=== PATIENT | female | born 1975 | race American Indian/Alaskan Native ===

== ENCOUNTER 2018-06-19 11:51 | Outpatient (CLI) | payer MEDICAID ==
--- NOTE | 2018-06-19 12:58 | XRay Report ---
LUMBOSACRAL SPINE, FIVE VIEWS: HISTORY: Low back pain. Views of the lumbosacral spine demonstrate normal bony alignment, vertebral height and interspace distances. Oblique views show patent foramina and normal apophyseal joint alignment. IMPRESSION: Lumbar spine within normal limits.
--- NOTE | 2018-06-19 12:59 | XRay Report ---
CERVICAL SPINE, 5 views: History: Cervicalgia. Views of the cervical spine demonstrate normal bony alignment and vertebral body heights. There is mild disc space narrowing at C5-6 with mild anterior spurring. The remaining levels are unremarkable. The facet joints are within normal limits. Oblique views show patent foramina and normal apophyseal joint alignment. The prevertebral soft tissues are not thickened. IMPRESSION: Early degenerative disc disease at C5-6. No evidence for neural foraminal stenosis.
== END 2018-06-19 11:52 | disposition home or self-care (01) ==
LOC: XRAY 11:51
PROVIDERS: ATTEND Orthopaedic Surgery
DX: M50.322 Other cervical disc degeneration at C5-C6 level (principal); M48.02 Spinal stenosis, cervical region; M54.5 Low back pain; Z91.041 Radiographic dye allergy status
CPT/HCPCS: 72050; 72110

== ENCOUNTER 2018-09-30 20:21 | Emergency (ER) | payer MEDICAID ==
[2018-09-30 21:02] VITALS: BP 125/71
--- NOTE | 2018-10-01 01:46 | Emergency Department Report ---
ED Back Pain/Injury HPI - General Chief Complaint: Back Pain/Injury Stated Complaint: SCIATIC NERVE PAIN Time Seen by Provider: 10/01/18 01:27 Source: patient Limitations: No Limitations - History of Present Illness Initial Comments: Pt is a 43 yo female who presents to the ED with c/o neck pain and back pain x 6 months. She states she has occasional tingling sensation in the arms and legs. SHe denies any numbness or weakness. She denies any fall, trauma, or injury. Pt has been evaluated in the ED for these complaints on multiples occasions. Pt had XRs in the ED on 06/2018 which showed early DDD of C5-6 otherwise normal, and no acute process of the lumbar spine. Pt states she saw Dr. Foreman who referred her to physical therapy. Pt never went to physical therapy. Denies any PMHx. - Related Data Previous Rx's Medication Instructions Recorded Last Taken Type Ibuprofen 800 mg PO Q6HR PRN #20 tablet 10/01/18 Unknown Rx Methocarbamol [Robaxin TAB] 750 mg PO QHS PRN #14 tablet 10/01/18 Unknown Rx Prednisone [predniSONE 10 mg 10 mg PO .TAPER #1 tab.ds.pk 10/01/18 Unknown Rx (6-Day Pack, 21 Tabs)] Allergies Allergy/AdvReac Type Severity Reaction Status Date / Time iodine Allergy Itching Unverified 06/19/18 11:52 shellfish derived Allergy Unknown Verified 09/30/18 20:37 ED Review of Systems ROS: Stated complaint: SCIATIC NERVE PAIN Other details as noted in HPI Comment: All other systems reviewed and negative ED Past Medical Hx - Past Medical History Additional medical history: chronic back pain, pinched nerves in C-SPINE and LS SPINE - Surgical History Additional Surgical History: Gastric bypass 20 yrs ago - Social History Smoking Status: Current Every Day Smoker Substance Use Type: None - Medications Home Medications: Home Medications Medication Instructions Recorded Confirmed Last Taken Type Ibuprofen 800 mg PO Q6HR PRN #20 tablet 10/01/18 Unknown Rx Methocarbamol [Robaxin TAB] 750 mg PO QHS PRN #14 tablet 10/01/18 Unknown Rx Prednisone [predniSONE 10 mg 10 mg PO .TAPER #1 tab.ds.pk 10/01/18 Unknown Rx (6-Day Pack, 21 Tabs)] ED Physical Exam - General Limitations: No Limitations General appearance: alert, in no apparent distress - Head Head exam: Present: atraumatic, normocephalic - Eye Eye exam: Present: normal appearance - ENT ENT exam: Present: mucous membranes moist - Neck Neck exam: Present: normal inspection, full ROM, other (right sided C-spine paraspinal muscular tenderness, no midline tenderness, no step offs, no deformities) - Respiratory Respiratory exam: Present: normal lung sounds bilaterally. Absent: respiratory distress, wheezes, rales, rhonchi, stridor, chest wall tenderness, accessory muscle use, decreased breath sounds, prolonged expiratory - Cardiovascular Cardiovascular Exam: Present: regular rate, normal rhythm, normal heart sounds. Absent: systolic murmur, diastolic murmur, rubs, gallop - Back Exam Back exam: Present: normal inspection, full ROM, paraspinal tenderness (right sided lumbar paraspinal muscular tenderness, no T-spine or L-spine midline tenderness, no step offs, no deformities). Absent: vertebral tenderness - Neurological Exam Neurological exam: Present: alert, oriented X3, CN II-XII intact, normal gait, other (equal grip wrapper strength, normal finger to nose, normal heel to underwood, 5/5 strength in the BUE/BLE, sensation intact, no focal neuro deficit). Absent: motor sensory deficit - Psychiatric Psychiatric exam: Present: normal affect, normal mood - Skin Skin exam: Present: warm, dry, intact ED Course Vital Signs 09/30/18 09/30/18 10/01/18 20:53 22:10 02:06 Temperature 98.2 F 98.2 F Pulse Rate 93 H 90 69 Respiratory 18 18 17 Rate Blood Pressure 125/71 125/71 O2 Sat by Pulse 100 100 100 Oximetry ED Medical Decision Making - Lab Data Vital Signs 09/30/18 09/30/18 10/01/18 20:53 22:10 02:06 Temperature 98.2 F 98.2 F Pulse Rate 93 H 90 69 Respiratory 18 18 17 Rate Blood Pressure 125/71 125/71 O2 Sat by Pulse 100 100 100 Oximetry - Medical Decision Making Pt is a 43 yo female who presents to the ED with c/o neck pain and back pain x 6 months. She states she has occasional tingling sensation in the arms and legs. SHe denies any numbness or weakness. She denies any fall, trauma, or injury. Pt has been evaluated in the ED for these complaints on multiples occasions. Pt had XRs in the ED on 06/2018 which showed early DDD of C5-6 otherwise normal, and no acute process of the lumbar spine. Pt states she saw Dr. Foreman who referred her to physical therapy. Pt never went to physical therapy. Denies any PMHx. Examination with right sided c-spine and l-spine paraspinal muscular tenderness, no midline tenderness, no step offs, no deformities, no neuro deficit. Will give pt tx for strain. Will give anti-inflammatory, muscle relaxer, and steroids. Advised pt to please follow up with Dr. Foreman orthopedic again in the next 2-3 days. Follow up with PCP in the next 2-3 days. May use ice, heating pad, epsom salt bath. Critical care attestation.: If time is entered above; I have spent that time in minutes in the direct care of this critically ill patient, excluding procedure time. ED Disposition Clinical Impression: Chronic neck pain, Muscle strain Chronic back pain Qualifiers: Back pain location: low back pain Back pain laterality: right Sciatica presence: without sciatica Qualified Code(s): M54.5 - Low back pain DDD (degenerative disc disease) Qualifiers: Spinal region: mid-cervical Mid-cervical spinal level: C5-C6 Qualified Code(s): M50.322 - Other cervical disc degeneration at C5-C6 level Disposition: -01 TO HOME OR SELFCARE Is pt being admited?: No Does the pt Need Aspirin: No Condition: Stable Instructions: Muscle Strain (ED), Chronic Back Pain (ED) Additional Instructions: Please take medication as prescribed. Do not drive or operate heavy machinery while taking muscle relaxer. Please follow up with Dr. Foreman orthopedic again in the next 2-3 days. Follow up with primary care in the next 2-3 days. May use ice, heating pad, epsom salt bath. Prescriptions: Methocarbamol [Robaxin TAB] 750 mg PO QHS PRN #14 tablet PRN Reason: Spasms Ibuprofen 800 mg PO Q6HR PRN #20 tablet PRN Reason: Pain, Moderate (4-6) Prednisone [predniSONE 10 mg (6-Day Pack, 21 Tabs)] 10 mg PO .TAPER #1 tab.ds.pk Referrals: JOSE RACHEL MD [Primary Care Provider] - 2-3 Days ANDREIA FOREMAN MD [Staff Physician] - 2-3 Days Forms: Accompanied Note, Work/School Release Form(ED) Time of Disposition: 01:52 Print Language: IVORIAN
== END 2018-10-01 02:06 | disposition home or self-care (01) ==
LOC: ED 20:21
DX: S16.1XXA Strain of muscle, fascia and tendon at neck level, initial encounter (principal); M50.322 Other cervical disc degeneration at C5-C6 level; G89.29 Other chronic pain; F17.200 Nicotine dependence, unspecified, uncomplicated; Z91.013 Allergy to seafood; Z91.09 Other allergy status, other than to drugs and biological substances; X58.XXXA Exposure to other specified factors, initial encounter; Y93.89 Activity, other specified; Y92.89 Other specified places as the place of occurrence of the external cause; Y99.8 Other external cause status
CPT/HCPCS: 99282

== ENCOUNTER 2019-06-16 08:42 | Emergency (ER) | payer MEDICAID ==
[2019-06-16] MEDS ORDERED: ASPIRIN 325 MG TAB PO ONE (09:07)
[2019-06-16 09:45] LABS: Basophils # (Auto) 0.1 K/mm3 (0.0-0.1); Basophils % (Auto) 0.5 % (0.0-1.8); Eosinophils # (Auto) 0.1 K/mm3 (0.0-0.4); Hematocrit 29.7 % (30.3-42.9); Hemoglobin 9.8 gm/dl (10.1-14.3); Lymphocytes # (Auto) 3.7 K/mm3 (1.2-5.4); Lymphocytes % (Auto) 36.8 % (13.4-35.0); Mean Corpuscular HGB Conc 33 % (30-34); Mean Corpuscular Volume 82 fl (79-97); Monocytes # (Auto) 1.2 K/mm3 (0.0-0.8); Monocytes % (Auto) 12.3 % (0.0-7.3); Platelet Count 187 K/mm3 (140-440); Red Blood Count 3.63 M/mm3 (3.65-5.03)
[2019-06-16 09:46] LABS: Red Cell Distribution Width 20.3 % (13.2-15.2)
[2019-06-16 10:08] LABS: BUN/Creatinine Ratio 15; Blood Urea Nitrogen 6 mg/dL (7-17)
[2019-06-16 10:09] LABS: Calcium 8.4 mg/dL (8.4-10.2); Hemolysis Index 66
--- NOTE | 2019-06-16 13:51 | Event Note ---
Date: 06/16/19 Patient is a 44-year-old female, she might be seen doctor. BABAR primary care doctor, does not have any long-term medical problems that she is aware of, indicates that she is not , presenting with 2 months of shortness of breath. She states that she has no DVT or pulmonary embolism risk factors. She is also endorsing lower extremity swelling and edema. Upon initial evaluation she is resting comfortably in her stretcher, and in no acute distress. Plan is to obtain basic laboratory studies, EKG, x-ray the chest, and reassess. Reports no PE, DVT risk factors, low risk by well's criteria, perc negative Vital Signs 06/16/19 08:47 Temperature 97.5 F L Pulse Rate 69 Respiratory 18 Rate Blood Pressure 108/43 O2 Sat by Pulse 100 Oximetry Lab Results 06/16/19 06/16/19 06/16/19 Range/Units 09:13 09:13 12:12 WBC 10.0 (4.5-11.0) K/mm3 RBC 3.63 L (3.65-5.03) M/mm3 Hgb 9.8 L (10.1-14.3) gm/dl Hct 29.7 L (30.3-42.9) % MCV 82 (79-97) fl MCH 27 L (28-32) pg MCHC 33 (30-34) % RDW 20.3 H (13.2-15.2) % Plt Count 187 (140-440) K/mm3 Lymph % (Auto) 36.8 H (13.4-35.0) % Harrison % (Auto) 12.3 H (0.0-7.3) % Eos % (Auto) 1.0 (0.0-4.3) % Baso % (Auto) 0.5 (0.0-1.8) % Lymph # 3.7 (1.2-5.4) K/mm3 Harrison # 1.2 H (0.0-0.8) K/mm3 Eos # 0.1 (0.0-0.4) K/mm3 Baso # 0.1 (0.0-0.1) K/mm3 Seg Neutrophils % 49.4 (40.0-70.0) % Seg Neutrophils # 4.9 (1.8-7.7) K/mm3 Sodium 136 L (137-145) mmol/L Potassium 4.2 (3.6-5.0) mmol/L Chloride 103.6 (98-107) mmol/L Carbon Dioxide 19 L (22-30) mmol/L Anion Gap 18 mmol/L BUN 6 L (7-17) mg/dL Creatinine 0.4 L (0.7-1.2) mg/dL Estimated GFR > 60 ml/min BUN/Creatinine Ratio 15 % Glucose 98 (65-100) mg/dL Calcium 8.4 (8.4-10.2) mg/dL Troponin T < 0.010 < 0.010 (0.00-0.029) ng/mL
[2019-06-16 14:36] LABS: INR 1.69 (0.87-1.13)
--- NOTE | 2019-06-16 14:51 | Emergency Department Report ---
ED General Adult HPI - General Chief complaint: Dyspnea/Respdistress Stated complaint: BILAT FEET SWELLING/BACK PAIN Time Seen by Provider: 06/16/19 14:41 Source: patient Mode of arrival: Ambulatory Limitations: No Limitations - History of Present Illness Initial comments: Patient is 44 years old female with no significant past medical history. Patient presented to the ER complaining of 2 month history of bilateral lower extremity edema. Patient stated that she had similar symptoms 2 years ago and she was treated with a water pill. Patient denied any chest pain or shortness of breath. No fever or chills. - Related Data Previous Rx's Medication Instructions Recorded Last Taken Type Ibuprofen [Ibuprofen 800] 800 mg PO Q6HR PRN #20 tablet 10/01/18 Unknown Rx Prednisone [predniSONE 10 mg 10 mg PO .TAPER #1 tab.ds.pk 10/01/18 Unknown Rx (6-Day Pack, 21 Tabs)] methOCARBAMOL [Robaxin TAB] 750 mg PO QHS PRN #14 tablet 10/01/18 Unknown Rx Allergies Allergy/AdvReac Type Severity Reaction Status Date / Time iodine Allergy Itching Unverified 06/19/18 11:52 shellfish derived Allergy Unknown Verified 09/30/18 20:37 ED Review of Systems ROS: Stated complaint: BILAT FEET SWELLING/BACK PAIN Other details as noted in HPI Comment: All other systems reviewed and negative Constitutional: denies: chills, fever Respiratory: denies: orthopnea, shortness of breath, SOB with exertion Cardiovascular: denies: chest pain, palpitations Gastrointestinal: denies: abdominal pain, nausea, vomiting Neurological: denies: headache ED Past Medical Hx - Past Medical History Previous Medical History?: Yes Additional medical history: Chronic back pain, pinched nerves in C-SPINE and LS SPINE - Surgical History Past Surgical History?: Yes Additional Surgical History: Gastric bypass 20 yrs ago - Social History Smoking Status: Current Every Day Smoker Substance Use Type: None - Medications Home Medications: Home Medications Medication Instructions Recorded Confirmed Last Taken Type Ibuprofen [Ibuprofen 800] 800 mg PO Q6HR PRN #20 tablet 10/01/18 Unknown Rx Prednisone [predniSONE 10 mg 10 mg PO .TAPER #1 tab.ds.pk 10/01/18 Unknown Rx (6-Day Pack, 21 Tabs)] methOCARBAMOL [Robaxin TAB] 750 mg PO QHS PRN #14 tablet 10/01/18 Unknown Rx ED Physical Exam - General Limitations: No Limitations General appearance: alert, in no apparent distress - Head Head exam: Present: atraumatic, normocephalic, normal inspection - Eye Eye exam: Present: normal appearance - ENT ENT exam: Present: normal exam, normal orophraynx, mucous membranes moist - Neck Neck exam: Present: normal inspection. Absent: tenderness, meningismus - Respiratory Respiratory exam: Present: normal lung sounds bilaterally - Cardiovascular Cardiovascular Exam: Present: regular rate, normal rhythm, normal heart sounds - GI/Abdominal GI/Abdominal exam: Present: soft, normal bowel sounds. Absent: distended, tenderness, guarding, rebound, rigid, organomegaly, mass, bruit, pulsatile mass, hernia - Extremities Exam Extremities exam: Present: normal inspection, full ROM, normal capillary refill, pedal edema (2+ bilateral lower extremity edema.). Absent: tenderness, joint swelling, calf tenderness - Back Exam Back exam: Present: normal inspection, full ROM. Absent: CVA tenderness (R), CVA tenderness (L), muscle spasm, paraspinal tenderness, vertebral tenderness - Neurological Exam Neurological exam: Present: alert, oriented X3, CN II-XII intact, normal gait, reflexes normal. Absent: motor sensory deficit - Psychiatric Psychiatric exam: Present: normal mood - Skin Skin exam: Present: warm, intact, normal color ED Course Vital Signs 06/16/19 06/16/19 06/16/19 08:47 14:30 14:43 Temperature 97.5 F L 97.5 F L Pulse Rate 69 69 Respiratory 18 22 Rate Blood Pressure 108/43 93/44 O2 Sat by Pulse 100 100 100 Oximetry 06/16/19 06/16/19 06/16/19 15:00 15:31 16:01 Temperature Pulse Rate 37 L 40 L Respiratory 16 20 16 Rate Blood Pressure 85/58 90/54 96/51 O2 Sat by Pulse 75 L 100 99 Oximetry 06/16/19 06/16/19 16:31 17:01 Temperature Pulse Rate 41 L 42 L Respiratory 22 18 Rate Blood Pressure 103/55 103/61 O2 Sat by Pulse 100 98 Oximetry ED Medical Decision Making - Lab Data Result diagrams: 06/16/19 09:13 06/16/19 09:13 - EKG Data -: EKG Interpreted by Sd EKG shows normal: sinus rhythm Rate: bradycardia - EKG Data Interpretation: no acute changes - Radiology Data Radiology results: report reviewed - Medical Decision Making Patient is 44 years old female with no significant past medical history. Patient presented to the ER complaining of 2 month history of bilateral lower extremity edema. Patient stated that she had similar symptoms 2 years ago and she was treated with a water pill. Patient denied any chest pain or shortness of breath. No fever or chills. Patient remained stable in the ER. Labs reviewed and showed elevated liver enzymes consistent with patient history of chronic alcoholism. Chest x-ray show mild interstitial edema. Patient given prescription for Lasix and potassium supplement. Patient advised to follow up with her primary care physician. Patient also asked for a referral to Dr. Foreman to follow up with her sciatica. Patient advised to return to the ER if symptoms are not improved. Critical care attestation.: If time is entered above; I have spent that time in minutes in the direct care of this critically ill patient, excluding procedure time. ED Disposition Clinical Impression: Peripheral edema, Liver cirrhosis, Sciatica Disposition: TO HOME OR SELFCARE Is pt being admited?: No Condition: Stable Referrals: JOSE RACHEL MD [Primary Care Provider] - 3-5 Days [facility] [Provider Group] - 3-5 Days ANDREIA FOREMAN MD [Staff Physician] - 3-5 Days
[2019-06-16 15:26] LABS: Albumin 2.5 g/dL (3.9-5); Bilirubin,Direct 1.9 mg/dL (0-0.2)
--- NOTE | 2019-06-16 16:25 | XRay Report ---
CHEST 1 VIEW INDICATION / CLINICAL INFORMATION: Chest Pain UPT. COMPARISON: None available. FINDINGS: SUPPORT DEVICES: None. HEART / MEDIASTINUM: No significant abnormality. LUNGS / PLEURA: Mild interstitial edema. Signer Name: Adam Lopez MD Signed: 06/16/2019 4:21 PM Workstation Name: [id number]
[2019-06-16 17:24] VITALS: BP 103/61
== END 2019-06-16 18:26 | disposition home or self-care (01) ==
LOC: ED 08:42
DX: R60.9 Edema, unspecified (principal); K74.60 Unspecified cirrhosis of liver; M54.30 Sciatica, unspecified side; F17.200 Nicotine dependence, unspecified, uncomplicated
CPT/HCPCS: 36415; 71045; 80048; 80076; 82550; 83735; 83880; 84484; 84702; 85025; 85610; 93005; 93010

== ENCOUNTER 2021-06-04 14:01 | Emergency (ER) | payer MEDICAID ==
[2021-06-04] MEDS ORDERED: LORazepam 1 MG TAB PO ONE (14:52)
[2021-06-04] MEDS ORDERED: LORazepam 2 MG/ML VIAL IV PRN ×3 (15:11)
[2021-06-04] MEDS ORDERED: diazePAM 10 MG/2 ML SYRINGE IV ONE (15:11)
--- NOTE | 2021-06-04 15:12 | Emergency Department Report ---
ED General Adult HPI - General Chief complaint: Pain General Stated complaint: shakes PUI?: No Time Seen by Provider: 06/04/21 14:53 Source: patient Mode of arrival: Ambulatory Limitations: No Limitations - History of Present Illness Initial comments: The patient was evaluated in the emergency department for symptoms described in the history of present illness. He/she was evaluated in the context of the global COVID-19 pandemic, which necessitated consideration that the patient might be at risk for infection with the virus that causes COVID-19. Institutional protocols and algorithms that pertain to the evaluation of dawood ents at risk for COVID-19 are in a state of rapid change based on information released by regulatory bodies including the CDC and federal and state organizations. These policies and algorithms were followed during the patient's care in the emergency department. Please note that these policies, procedures and recommendations changed on a rapid basis. The patient is a 46-year-old female. She has a history of alcohol abuse and gastric bypass. She also has a history of alcoholic hepatitis and chronic liver disease. She also has a history of ascites. The patient has not followed up with an outpatient primary care doctor or donor technician. The patient reports that she recently relapsed on alcohol, and then stopped a few days ago. She reports that she has mild shakes. She has no physical pain. She is not experiencing hallucinations. She denies homicidality and suicidality. She also endorses new onset easy bruising, on her bilateral anterior chest wall and breasts, and in her left upper extremity. She denies vomiting blood in defecation of blood. -: Gradual, days(s) Severity scale (0 -10): 10 Consistency: constant Improves with: none Worsens with: none - Related Data Home Medications Medication Instructions Recorded Confirmed Last Taken Gabapentin [Neurontin] 300 mg PO BID 06/04/21 06/04/21 Unknown tiZANidine [Zanaflex 4mg TAB] 4 mg PO DAILY 06/04/21 06/04/21 Unknown Allergies Allergy/AdvReac Type Severity Reaction Status Date / Time iodine Allergy Itching Verified 07/31/19 21:43 shellfish derived Allergy Itching Verified 07/31/19 21:43 ED Review of Systems ROS: Stated complaint: shakes Other details as noted in HPI Constitutional: malaise. denies: fever Eyes: denies: eye discharge, vision change ENT: denies: epistaxis Respiratory: denies: cough Cardiovascular: denies: chest pain Gastrointestinal: denies: abdominal pain, nausea, vomiting, diarrhea, hematemesis, melena, hematochezia Musculoskeletal: myalgia Skin: other (Ecchymosis, black and blue) Neurological: denies: confusion, abnormal gait Psychiatric: denies: depression, auditory hallucinations, visual hallucinations, homicidal thoughts, suicidal thoughts Hematological/Lymphatic: easy bruising. denies: easy bleeding ED Past Medical Hx - Past Medical History Previous Medical History?: Yes Additional medical history: Chronic back pain, pinched nerves in C-SPINE and LS SPINE - Surgical History Hx Cholecystectomy: Yes Additional Surgical History: Gastric bypass 20 yrs ago. x2 - Social History Smoking Status: Unknown if ever smoked - Medications Home Medications: Home Medications Medication Instructions Recorded Confirmed Last Taken Type Gabapentin [Neurontin] 300 mg PO BID 06/04/21 06/04/21 Unknown History tiZANidine [Zanaflex 4mg TAB] 4 mg PO DAILY 06/04/21 06/04/21 Unknown History ED Physical Exam - General Limitations: No Limitations General appearance: alert, anxious, obese - Head Head exam: Present: atraumatic, normocephalic - Eye Eye exam: Present: normal appearance, EOMI. Absent: nystagmus - ENT ENT exam: Present: normal exam, normal orophraynx, mucous membranes moist, normal external ear exam, other (Tongue fasciculations noted) - Neck Neck exam: Present: normal inspection, full ROM. Absent: tenderness, meningismus - Respiratory Respiratory exam: Present: normal lung sounds bilaterally, chest wall tenderness (Anterior chest wall ecchymosis noted. Chaperoned by Elza Guzman. Patient provides verbal consent for chest wall examination with manual plate filler). Absent: respiratory distress, wheezes, rales, rhonchi, stridor, decreased breath sounds - Cardiovascular Cardiovascular Exam: Present: normal rhythm, bradycardia, normal heart sounds. Absent: tachycardia, irregular rhythm, systolic murmur, diastolic murmur, rubs, gallop - GI/Abdominal GI/Abdominal exam: Present: soft. Absent: tenderness, guarding, rebound, rigid, pulsatile mass - Extremities Exam Extremities exam: Present: normal inspection, full ROM, pedal edema (1+ edema in the bilateral lower extremity), other (2+ pulses noted in the bilateral upper and lower extremities. There is no palpable cord. negative Homans sign. Muscular compartments are soft. The pelvis is stable.). Absent: calf tenderness - Back Exam Back exam: Present: normal inspection, full ROM. Absent: tenderness, CVA tenderness (R), CVA tenderness (L), paraspinal tenderness, vertebral tenderness - Neurological Exam Neurological exam: Present: alert, oriented X3, normal gait, other (No facial droop. Tongue midline. Extraocular movements intact bilaterally. Facial sensation intact to light touch in V1, V2, V3 distribution bilaterally. 5 and a 5 strength in 4 extremities. Sensation intact to light touch in 4 extremities.). Absent: motor sensory deficit - Psychiatric Psychiatric exam: Present: anxious. Absent: homicidal ideation, suicidal ideation - Skin Skin exam: Present: warm, ecchymosis ED Course Vital Signs 06/04/21 06/04/21 06/04/21 14:05 16:46 17:00 Temperature 97.9 F Pulse Rate 59 L 68 84 Respiratory 18 24 13 Rate Blood Pressure 96/58 84/60 Blood Pressure 92/54 [Right] O2 Sat by Pulse 100 100 99 Oximetry 06/04/21 06/04/21 06/04/21 17:15 17:30 18:30 Temperature Pulse Rate 82 80 90 Respiratory 15 18 14 Rate Blood Pressure 96/58 103/71 93/54 Blood Pressure [Right] O2 Sat by Pulse 100 100 100 Oximetry - Reevaluation(s) Reevaluation #1: 06/04/21 16:08 Differential diagnosis, including but not limited to: Thrombocytopenia, alcoholic liver disease, electrolyte derangement, alcohol withdrawal Assessment and plan: 46-year-old female, who was afebrile, with reassuring vital signs, who is clinically sober with a GCS of 15, who walks with a steady gait, presenting with mild shaking, mild tongue fasciculations, anterior chest wall ecchymosis, which is spontaneous and nontraumatic, left upper extremity ecchymosis, which is spontaneous and nontraumatic. This is most likely secondary to thrombocytopenia, likely secondary to liver disease and alcoholic disease. In addition, her underlying history of gastric bypass may predispose her towards these manifestations as well. We will replete the patient's potassium and magnesium. We will continue the patient's home medications. She will be given Valium for mild alcohol withdrawal. She is not homicidal or suicidal, she does not meet criteria for 1013 hold or involuntary hold, and she is not acutely cephalopathic or altered. Patient is strongly encouraged to cease alcohol consumption. She is also encouraged to consume outpatient mul tivitamins, to avoid NSAIDs, she will need to follow-up with an outpatient primary care doctor or operations section manager and/or GI specialist. The patient's liver abnormalities appear to be chronic. She is not acutely decompensated to the point where she would require medical admission to the hospital. Ultimately, it will be incumbent on the patient to follow-up as an outpatient, and adopt the appropriate diet lifestyle modifications necessary for her outpatient medical care. 06/04/21 18:48 This patient is reevaluated multiple times. She is eating a meal tray, without any kind of distress, and is noted to be on her cellular phone. Patient has also had multiple interactions with nursing staff, and registration staff. On my final reassessment, blood pressure is 107/65 mmHg. She appears to be at her baseline, and does not appear to be acutely decompensated. She is again encouraged to follow-up with outpatient specialist, and we also discussed diet lifestyle modifications. ED Medical Decision Making - Lab Data Result diagrams: 06/04/21 15:04 06/04/21 15:04 Vital Signs 06/04/21 14:05 Temperature 97.9 F Pulse Rate 59 L Respiratory 18 Rate Blood Pressure 92/54 [Right] O2 Sat by Pulse 100 Oximetry Lab Results 06/04/21 06/04/21 06/04/21 Range/Units 15:04 15:04 15:04 WBC 4.6 (4.5-11.0) K/mm3 RBC 3.70 (3.65-5.03) M/mm3 Hgb 9.2 L (10.1-14.3) gm/dl Hct 30.7 (30.3-42.9) % MCV 83 (79-97) fl MCH 25 L (28-32) pg MCHC 30 (30-34) % RDW 18.3 H (13.2-15.2) % Plt Count 97 L (140-440) K/mm3 Lymph % (Auto) 28.6 (13.4-35.0) % [place] % (Auto) 8.1 H (0.0-7.3) % Eos % (Auto) 0.7 (0.0-4.3) % Baso % (Auto) 0.7 (0.0-1.8) % Lymph # (Auto) 1.3 (1.2-5.4) K/mm3 [place] # (Auto) 0.4 (0.0-0.8) K/mm3 Eos # (Auto) 0.0 (0.0-0.4) K/mm3 Baso # (Auto) 0.0 (0.0-0.1) K/mm3 Seg Neutrophils % 61.9 (40.0-70.0) % Seg Neutrophils # 2.9 (1.8-7.7) K/mm3 PT (12.2-14.9) Sec. INR (0.87-1.13) APTT (24.2-36.6) Sec. Sodium 138 (137-145) mmol/L Potassium 3.1 L (3.6-5.0) mmol/L Chloride 100.3 (98-107) mmol/L Carbon Dioxide 22 (22-30) mmol/L Anion Gap 19 mmol/L BUN 8 (7-17) mg/dL Creatinine 0.6 (0.6-1.2) mg/dL Estimated GFR > 60 ml/min BUN/Creatinine Ratio 13 % Glucose 131 H (65-100) mg/dL Calcium 8.3 L (8.4-10.2) mg/dL Magnesium 1.30 L (1.7-2.3) mg/dL Total Bilirubin 2.50 H (0.1-1.2) mg/dL AST 105 H (5-40) units/L ALT 25 (7-56) units/L Alkaline Phosphatase 289 H (35-129) units/L Ammonia (25-60) umol/L Total Creatine Kinase 114 (30-135) units/L Total Protein 8.0 (6.3-8.2) g/dL Albumin 3.8 L (3.9-5) g/dL Albumin/Globulin Ratio 0.9 % Salicylates (2.8-20.0) mg/dL Acetaminophen 5.0 L (10.0-30.0) ug/mL Plasma/Serum Alcohol (0-0.07) % 06/04/21 06/04/21 06/04/21 Range/Units 15:04 15:04 15:13 WBC (4.5-11.0) K/mm3 RBC (3.65-5.03) M/mm3 Hgb (10.1-14.3) gm/dl Hct (30.3-42.9) % MCV (79-97) fl MCH (28-32) pg MCHC (30-34) % RDW (13.2-15.2) % Plt Count (140-440) K/mm3 Lymph % (Auto) (13.4-35.0) % [place] % (Auto) (0.0-7.3) % Eos % (Auto) (0.0-4.3) % Baso % (Auto) (0.0-1.8) % Lymph # (Auto) (1.2-5.4) K/mm3 [place] # (Auto) (0.0-0.8) K/mm3 Eos # (Auto) (0.0-0.4) K/mm3 Baso # (Auto) (0.0-0.1) K/mm3 Seg Neutrophils % (40.0-70.0) % Seg Neutrophils # (1.8-7.7) K/mm3 PT 14.7 (12.2-14.9) Sec. INR 1.04 (0.87-1.13) APTT 32.6 (24.2-36.6) Sec. Sodium (137-145) mmol/L Potassium (3.6-5.0) mmol/L Chloride (98-107) mmol/L Carbon Dioxide (22-30) mmol/L Anion Gap mmol/L BUN (7-17) mg/dL Creatinine (0.6-1.2) mg/dL Estimated GFR ml/min BUN/Creatinine Ratio % Glucose (65-100) mg/dL Calcium (8.4-10.2) mg/dL Magnesium (1.7-2.3) mg/dL Total Bilirubin (0.1-1.2) mg/dL AST (5-40) units/L ALT (7-56) units/L Alkaline Phosphatase (35-129) units/L Ammonia (25-60) umol/L Total Creatine Kinase (30-135) units/L Total Protein (6.3-8.2) g/dL Albumin (3.9-5) g/dL Albumin/Globulin Ratio % Salicylates < 0.3 L (2.8-20.0) mg/dL Acetaminophen (10.0-30.0) ug/mL Plasma/Serum Alcohol < 0.01 (0-0.07) % 06/04/ Range/Units 15:13 WBC (4.5-11.0) K/mm3 RBC (3.65-5.03) M/mm3 Hgb (10.1-14.3) gm/dl Hct (30.3-42.9) % MCV (79-97) fl MCH (28-32) pg MCHC (30-34) % RDW (13.2-15.2) % Plt Count (140-440) K/mm3 Lymph % (Auto) (13.4-35.0) % [place] % (Auto) (0.0-7.3) % Eos % (Auto) (0.0-4.3) % Baso % (Auto) (0.0-1.8) % Lymph # (Auto) (1.2-5.4) K/mm3 [place] # (Auto) (0.0-0.8) K/mm3 Eos # (Auto) (0.0-0.4) K/mm3 Baso # (Auto) (0.0-0.1) K/mm3 Seg Neutrophils % (40.0-70.0) % Seg Neutrophils # (1.8-7.7) K/mm3 PT (12.2-14.9) Sec. INR (0.87-1.13) APTT (24.2-36.6) Sec. Sodium (137-145) mmol/L Potassium (3.6-5.0) mmol/L Chloride (98-107) mmol/L Carbon Dioxide (22-30) mmol/L Anion Gap mmol/L BUN (7-17) mg/dL Creatinine (0.6-1.2) mg/dL Estimated GFR ml/min BUN/Creatinine Ratio % Glucose (65-100) mg/dL Calcium (8.4-10.2) mg/dL Magnesium (1.7-2.3) mg/dL Total Bilirubin (0.1-1.2) mg/dL AST (5-40) units/L ALT (7-56) units/L Alkaline Phosphatase (35-129) units/L Ammonia 29.0 (25-60) umol/L Total Creatine Kinase (30-135) units/L Total Protein (6.3-8.2) g/dL Albumin (3.9-5) g/dL Albumin/Globulin Ratio % Salicylates (2.8-20.0) mg/dL Acetaminophen (10.0-30.0) ug/mL Plasma/Serum Alcohol (0-0.07) % Vital Signs 06/04/21 06/04/21 06/04/21 14:05 16:46 17:00 Temperature 97.9 F Pulse Rate 59 L 68 84 Respiratory 18 24 13 Rate Blood Pressure 96/58 84/60 Blood Pressure 92/54 [Right] O2 Sat by Pulse 100 100 99 Oximetry 06/04/21 06/04/21 06/04/21 17:15 17:30 18:30 Temperature Pulse Rate 82 80 90 Respiratory 15 18 14 Rate Blood Pressure 96/58 103/71 93/54 Blood Pressure [Right] O2 Sat by Pulse 100 100 100 Oximetry Critical care attestation.: If time is entered above; I have spent that time in minutes in the direct care of this critically ill patient, excluding procedure time. ED Disposition Clinical Impression: History of alcohol abuse, Elevated liver enzymes, Coagulopathy, Hypomagnesemia, Alcoholic liver disease, Hypokalemia, Thrombocytopenia Disposition: 01 HOME / SELF CARE / HOMELESS Is pt being admited?: No Does the pt Need Aspirin: No Condition: Good Instructions: Alcoholic Liver Disease, Hypomagnesemia, Hypokalemia, Potassium Content of Foods Additional Instructions: Patient likely experiencing mild alcohol withdrawal, and is lately having black and blue/ecchymosis, secondary to thrombocytopenia/decreased platelet count, as well as impaired liver function, likely secondary to underlying alcoholic liver disease. Recommend immediate cessation of alcohol. Recommend follow-up with a primary care doctor within the next week, such as [facility], or Dr Metz Recommend follow-up with a donor technician, such as those who work at [facility], within the next month. Recommend follow-up with a operations section manager, such as Dr. Sykes, within the next month. Recommend that patient not consume Tylenol, Motrin, ibuprofen, Naprosyn, or Aleve. Take the vitamins as directed, medications as directed, use the Librium as needed for sensation of alcohol withdrawal. Please return to the emergency room right away with new pain, worsened pain, migration of pain, projectile vomiting, change in mental status, confusion, inability tolerate liquid feeds, new, worsened or different symptoms not present on the initial emergency room evaluation the patient is found to have low potassium and low magnesium, likely secondary to alcoholism. Patient should consume foods that are high in potassium, such as banana, avocado, or potato. Patient may alternatively take the supplements as prescribed. Referrals: RAGHU METZ MD [Staff Physician] - 3-5 Days MICHAEL SYKES MD [Staff Physician] - 3-5 Days [facility] [Provider Group] - 3-5 Days [facility] [Provider Group] - 3-5 Days
[2021-06-04 15:24] LABS: Basophils % (Auto) 0.7 % (0.0-1.8); Eosinophils % (Auto) 0.7 % (0.0-4.3); Lymphocytes # (Auto) 1.3 K/mm3 (1.2-5.4); Lymphocytes % (Auto) 28.6 % (13.4-35.0); Mean Corpuscular HGB Conc 30 % (30-34); Mean Corpuscular Volume 83 fl (79-97); Monocytes # (Auto) 0.4 K/mm3 (0.0-0.8); Monocytes % (Auto) 8.1 % (0.0-7.3); Red Cell Distribution Width 18.3 % (13.2-15.2)
[2021-06-04 15:29] LABS: Hematocrit 30.7 % (30.3-42.9); Hemoglobin 9.2 gm/dl (10.1-14.3)
[2021-06-04 15:30] LABS: Platelet Count 97 K/mm3 (140-440)
[2021-06-04 15:34] LABS: INR 1.04 (0.87-1.13)
[2021-06-04 15:35] LABS: Partial Thromboplastin Time 32.6 Sec. (24.2-36.6)
[2021-06-04 15:48] LABS: Alanine Aminotransferase 25 units/L (7-56); Albumin 3.8 g/dL (3.9-5); Blood Urea Nitrogen 8 mg/dL (7-17); Calcium 8.3 mg/dL (8.4-10.2); Hemolysis Index 2
[2021-06-04] MEDS ORDERED: POTASSIUM CHLORIDE ER 20 MEQ TAB PO ONE (15:54)
[2021-06-04] MEDS ORDERED: MAGNESIUM OXIDE 400 MG TAB PO STA (15:54)
[2021-06-04] MEDS ORDERED: MAGNESIUM SULFATE 2 GM/50 ML BAG IV ONE (15:54)
[2021-06-04 15:56] LABS: BUN/Creatinine Ratio 13
[2021-06-04] MEDS ORDERED: THIAMINE 100 MG, FOLIC ACID 1 MG, MULTIPLE VITAMIN INJ, ADULT 10 ML in SODIUM CHLORIDE ... IV ONE (16:00)
[2021-06-04 19:33] VITALS: BP 116/87
== END 2021-06-04 19:38 | disposition home or self-care (01) ==
LOC: ED 14:01
DX: S20.213A Contusion of bilateral front wall of thorax, initial encounter (principal); D68.9 Coagulation defect, unspecified; E83.42 Hypomagnesemia; E87.6 Hypokalemia; D69.6 Thrombocytopenia, unspecified; K70.9 Alcoholic liver disease, unspecified; X58.XXXA Exposure to other specified factors, initial encounter; Y93.89 Activity, other specified; Y92.89 Other specified places as the place of occurrence of the external cause; Y99.8 Other external cause status
CPT/HCPCS: 36415; 80053; 82140; 82550; 83735; 85025; 85610; 85730; 96365; 96366; 96375; 99283; J2060; J3360; J3411; J3490; J7030; 80320; Q0162; G0480

== ENCOUNTER 2021-10-05 08:58 | Emergency (ER) | payer MEDICAID ==
[2021-10-05 10:02] VITALS: BP 101/74
--- NOTE | 2021-10-05 18:13 | Electrocardiograph Report ---
[facility] Test Date: 2021-10-05 Test Time: 10:41:17 Pat Name: EMIL JONES Department: Room: Gender: F Checkman: OMER : 1975 Requested By: ED DOC Order Number: [id number] Reading MD: Kailee Weller Measurements Intervals [place] Rate: 79 P: 40 TX: 144 QRS: -16 QRSD: 99 T: -10 QT: 451 QTc: 516 Interpretive Statements Sinus rhythm Probable anterior infarct, age indeterminate Prolonged QT interval No previous ECG available for comparison Electronically Signed On 10-05-2021 18:13:30 EDT by Kailee Weller
== END 2021-10-05 19:00 | disposition left against medical advice (07) ==
LOC: ED 08:58
DX: R07.9 Chest pain, unspecified (principal); Z53.21 Procedure and treatment not carried out due to patient leaving prior to being seen by health care provider
CPT/HCPCS: 93005

== ENCOUNTER 2021-10-11 13:00 | Emergency (ER) | payer MEDICAID ==
[2021-10-11] MEDS ORDERED: ONDANSETRON 4 MG/2 ML INJ IV ONE (14:22)
[2021-10-11] MEDS ORDERED: MORPHINE 4 MG/1 ML INJ IV ONE ×2 (14:22→16:46)
[2021-10-11 14:46] LABS: Blood Urea Nitrogen 6 mg/dL (7-17); Calcium 8.5 mg/dL (8.4-10.2)
[2021-10-11 14:47] LABS: Alanine Aminotransferase 24 units/L (7-56); Albumin 2.7 g/dL (3.9-5); Basophils # (Auto) 0.1 K/mm3 (0.0-0.1); Basophils % (Auto) 1.2 % (0.0-1.8); Eosinophils % (Auto) 0.3 % (0.0-4.3); Hematocrit 26.9 % (30.3-42.9); Hemoglobin 8.8 gm/dl (10.1-14.3); Hemolysis Index 52; Lymphocytes # (Auto) 2.1 K/mm3 (1.2-5.4); Lymphocytes % (Auto) 17.3 % (13.4-35.0); Mean Corpuscular HGB Conc 33 % (30-34); Mean Corpuscular Volume 83 fl (79-97); Monocytes # (Auto) 1.4 K/mm3 (0.0-0.8); Monocytes % (Auto) 11.4 % (0.0-7.3); Platelet Count 260 K/mm3 (140-440); Red Blood Count 3.26 M/mm3 (3.65-5.03)
[2021-10-11 14:48] LABS: BUN/Creatinine Ratio 30
[2021-10-11 14:50] LABS: Red Cell Distribution Width 24.2 % (13.2-15.2)
[2021-10-11] MEDS ORDERED: diphenhydrAMINE 50 MG/ML VIAL ONE (14:52)
--- NOTE | 2021-10-11 16:30 | Cat Scan Report ---
CT ABDOMEN AND PELVIS WITHOUT CONTRAST HISTORY: abdominal pain COMPARISON: CT abdomen pelvis with contrast 07/30/2019 TECHNIQUE: Axial CT images were obtained through the abdomen and pelvis without IV contrast. Sagittal and coronal reformatted images. All CT scans at this location are performed using CT dose reduction for ALARA by means of automated exposure control. FINDINGS: CT ABDOMEN: Lung Bases: The visualized lung bases are clear. Borderline to mild cardiac enlargement. Liver: The liver appears mildly enlarged and heterogeneous on today's exam. This may represent fatty infiltration. There is small perihepatic ascites. Biliary: Stable cholecystectomy changes. No biliary dilatation is appreciated. Spleen: No significant abnormality. Pancreas: There are multiple small calcifications in the pancreatic head consistent with chronic panc reatitis. This is new since the previous exam. No obvious findings of acute pancreatitis. Adrenals: No significant abnormality. Kidneys: 4 mm calyceal stone is noted in the superior left kidney. No hydronephrosis. The kidneys and collecting system are otherwise unremarkable. Lymphatics: No lymphadenopathy. Vasculature: No significant abnormality. Bowel/Peritoneum: Circumferential thickening of the colon is again seen suggesting a nonspecific coli tis. There is no evidence for bowel obstruction or focal mass. Surgical changes are noted in the stom ach, correlate with history. The appendix is unremarkable. CT PELVIS: : The uterus, adnexa and bladder are within normal limits. Osseous Structures: No significant abnormality. Additional Findings: None IMPRESSION: Borderline to mild cardiomegaly, stable. Hepatomegaly with probable steatosis. Small perihepatic ascites. Chronic pancreatitis. No definite findings of acute pancreatitis. Nonobstructing left nephrolithiasis. Circumferential thickening of the colon is again seen and suggestive of a nonspecific colitis. This i s also noted on the previous exam in 2019. Signer Name: Dakota Francois Jr, MD Signed: 10/11/2021 4:26 PM Workstation Name: [id number]
[2021-10-11 18:09] LABS: Bacteria,Urine 1+ /HPF (Negative); Bilirubin,Urine MOD (Negative); Blood,Urine SM (Negative); Color,Urine Amber (Yellow); Mucus,Urine FEW /HPF
[2021-10-11] MEDS ORDERED: cefTRIAXone/NS 1 GM/50 ML 1 GM/50 ML BAG IV ONE (18:18)
[2021-10-11 18:20] LABS: Ictotest,Urine Negative (Negative)
--- NOTE | 2021-10-11 18:23 | Emergency Department Report ---
ED Abdominal Pain HPI - General Chief Complaint: Abdominal Pain Stated Complaint: ABDOMINAL PAIN Time Seen by Provider: 10/11/21 14:07 Source: patient, EMS Mode of arrival: Stretcher Limitations: No Limitations - History of Present Illness Initial Comments: 46-year-old black female with a past medical history of neuropathies and alcohol abuse presents to the emergency department for evaluation this is a case of few day history of worsening abdominal pain. She states that she has stopped drinking about a year ago but over the past few months she has been drinking a lot daily. She states that for the past week or so she been having worsening abdominal pain and then she noticed some yellowing to her eyes. She denies fever, nausea, vomiting, dysuria, and vaginal discharge. MD Complaint: abdominal pain -: Gradual, week(s) (2-3) Location: LLQ, RLQ Radiation: none Migration to: no migration Severity scale (0 -10): 7 Quality: aching Consistency: constant Associated Symptoms: denies: nausea, vomiting, diarrhea, fever, chills, dysuria, hematemesis, hematochezia, melena, hematuria, anorexia, syncope - Related Data Home Medications Medication Instructions Recorded Confirmed Last Taken Gabapentin [Neurontin] 300 mg PO BID 06/04/21 10/11/21 Unknown tiZANidine [Zanaflex 4mg TAB] 4 mg PO DAILY 06/04/21 10/11/21 Unknown Previous Rx's Medication Instructions Recorded Last Taken Type Multivitamin with Folic Acid [[facility] 400 mcg PO QDAY #30 tablet 06/04/21 Unknown Rx One Daily Essential Tablet] chlordiazePOXIDE [Librium] 25 mg PO Q6H PRN #25 capsule 06/04/21 Unknown Rx cephALEXin [Keflex] 500 mg PO Q12HR #14 cap 10/11/21 Unknown Rx Allergies Allergy/AdvReac Type Severity Reaction Status Date / Time iodine Allergy Itching Verified 10/11/21 13:10 shellfish derived Allergy Itching Verified 10/11/21 13:10 ED Review of Systems ROS: Stated complaint: ABDOMINAL PAIN Other details as noted in HPI Comment: All other systems reviewed and negative Constitutional: denies: chills, fever Respiratory: denies: cough, shortness of breath, SOB with exertion, SOB at rest, wheezing Cardiovascular: denies: chest pain, palpitations, dyspnea on exertion, orthopnea, edema, syncope, paroxysmal nocturnal dyspnea Gastrointestinal: abdominal pain. denies: nausea, vomiting, diarrhea, hematemesis, melena, hematochezia Genitourinary: denies: urgency, dysuria, frequency, hematuria, discharge Musculoskeletal: denies: back pain Skin: denies: rash, lesions Neurological: denies: headache, weakness ED Past Medical Hx - Past Medical History Additional medical history: Chronic back pain, pinched nerves in C-SPINE and LS SPINE - Surgical History Hx Cholecystectomy: Yes Additional Surgical History: Gastric bypass 20 yrs ago. x2 - Social History Smoking Status: Current Every Day Smoker Substance Use Type: Alcohol - Medications Home Medications: Home Medications Medication Instructions Recorded Confirmed Last Taken Type Gabapentin [Neurontin] 300 mg PO BID 06/04/21 10/11/21 Unknown History Multivitamin with Folic Acid [[facility] 400 mcg PO QDAY #30 tablet 06/04/21 10/11/21 Unknown Rx One Daily Essential Tablet] chlordiazePOXIDE [Librium] 25 mg PO Q6H PRN #25 capsule 06/04/21 10/11/21 Unknown Rx tiZANidine [Zanaflex 4mg TAB] 4 mg PO DAILY 06/04/21 10/11/21 Unknown History cephALEXin [Keflex] 500 mg PO Q12HR #14 cap 10/11/21 Unknown Rx ED Physical Exam - General Limitations: No Limitations General appearance: alert, in no apparent distress - Head Head exam: Present: atraumatic, normocephalic - Eye Eye exam: Present: scleral icterus. Absent: periorbital swelling, periorbital tenderness - Neck Neck exam: Present: normal inspection, full ROM. Absent: tenderness, lymphadenopathy - Respiratory Respiratory exam: Present: normal lung sounds bilaterally. Absent: respiratory distress, wheezes, rales, rhonchi, stridor, chest wall tenderness - Cardiovascular Cardiovascular Exam: Present: regular rate, normal heart sounds - GI/Abdominal GI/Abdominal exam: Present: soft, tenderness (Generalized), normal bowel sounds. Absent: distended, guarding, rebound, rigid - Extremities Exam Extremities exam: Present: normal inspection, normal capillary refill. Absent: pedal edema, joint swelling, calf tenderness - Back Exam Back exam: Present: normal inspection. Absent: CVA tenderness (R), CVA tenderness (L) - Neurological Exam Neurological exam: Present: alert, oriented X3, normal gait - Psychiatric Psychiatric exam: Present: normal affect, normal mood - Skin Skin exam: Present: warm, dry, intact, normal color ED Course Vital Signs 10/11/21 10/11/21 10/11/21 13:09 14:14 19:15 Temperature 98.1 F 98.1 F Pulse Rate 98 H 77 Respiratory 18 Rate Blood Pressure 100/63 121/89 [Left] O2 Sat by Pulse 100 100 99 Oximetry ED Medical Decision Making - Lab Data Result diagrams: 10/11/21 13:34 10/11/21 13:34 - Radiology Data Radiology results: report reviewed CT abdomen and pelvis without: FINDINGS: CT ABDOMEN: Lung Bases: The visualized lung bases are clear. Borderline to mild cardiac enlargement. Liver: The liver appears mildly enlarged and heterogeneous on today's exam. This may represent fatty infiltration. There is small perihepatic ascites. Biliary: Stable cholecystectomy changes. No biliary dilatation is appreciated. Spleen: No significant abnormality. Pancreas: There are multiple small calcifications in the pancreatic head consistent with chronic pancreatitis. This is new since the previous exam. No obvious findings of acute pancreatitis. Adrenals: No significant abnormality. Kidneys: 4 mm calyceal stone is noted in the superior left kidney. No hydronephrosis. The kidneys and collecting system are otherwise unremarkable. Lymphatics: No lymphadenopathy. Vasculature: No significant abnormality. Bowel/Peritoneum: Circumferential thickening of the colon is again seen suggesting a nonspecific colitis. There is no evidence for bowel obstruction or focal mass. Surgical changes are noted in the stomach, correlate with history. The appendix is unremarkable. CT PELVIS: : The uterus, adnexa and bladder are within normal limits. Osseous Structures: No significant abnormality. Additional Findings: None IMPRESSION: Borderline to mild cardiomegaly, stable. Hepatomegaly with probable steatosis. Small perihepatic ascites. Chronic pancreatitis. No definite findings of acute pancreatitis. Nonobstructing left nephrolithiasis. Circumferential thickening of the colon is again seen and suggestive of a nonspecific colitis. This is also noted on the previous exam in 2019. - Medical Decision Making 46-year-old black female with a past medical history of neuropathies and alcohol abuse presents to the emergency department for evaluation this is a case of few day history of worsening abdominal pain. She states that she has stopped drinking about a year ago but over the past few months she has been drinking a lot daily. She states that for the past week or so she been having worsening abdominal pain and then she noticed some yellowing to her eyes. She denies fever, nausea, vomiting, dysuria, and vaginal discharge. Patient noted to have elevated liver enzymes but the slightly improved from previous visit. CT scan with chronic pancreatits, kidney stones, hepatomegaly, and no acute abnormalities. Urine positive for UTI. She will be treated with one time dose of rocephin 1g IV then 7 day coarse of Keflex. She is advised to take mediations as prescribed and follow up with pcp and GI for further wilfred luation and management. She verbalized understanding of and agreement with plan of care. Critical care attestation.: If time is entered above; I have spent that time in minutes in the direct care of this critically ill patient, excluding procedure time. ED Disposition Clinical Impression: UTI (urinary tract infection) Qualifiers: Urinary tract infection type: acute cystitis Hematuria presence: with hematuria Qualified Code(s): N30.01 - Acute cystitis with hematuria Disposition: HOME / SELF CARE / HOMELESS Is pt being admited?: No Does the pt Need Aspirin: No Condition: Stable Instructions: Antibiotic Medicine, Adult, [id number], Urinary Tract Infection, Adult, [id number], Abdominal Pain (ED) Additional Instructions: Take medications as prescribed. Follow-up with stomach specialist or primary care provider for further evaluation and management. Return to the emergency department for any concerning symptoms. Prescriptions: cephALEXin [Keflex] 500 mg PO Q12HR #14 cap Referrals: SANA AUSTIN MD [Staff Physician] - 3-5 Days RAGHU STOVER MD [Staff Physician] - 3-5 Days Forms: Work/School Release Form(ED) Time of Disposition: 18:22
[2021-10-11 19:23] VITALS: BP 121/89
== END 2021-10-11 19:15 | disposition home or self-care (01) ==
LOC: ED 13:00
DX: N39.0 Urinary tract infection, site not specified (principal); F17.200 Nicotine dependence, unspecified, uncomplicated; F10.20 Alcohol dependence, uncomplicated; Z91.041 Radiographic dye allergy status; Z91.013 Allergy to seafood
CPT/HCPCS: 36415; 74176; 80048; 80076; 81001; 83690; 84703; 85025; 87076; 87086; 87186; 96365; 96375; 96376; 99284; J0696; J1200; J2270; J2405; 80320; G0480

== ENCOUNTER 2021-10-13 07:55 | Emergency (ER) | payer MEDICAID ==
[2021-10-13] MEDS ORDERED: THIAMINE 100 MG TAB PO ONE (14:35)
[2021-10-13] MEDS ORDERED: MULTIVITAMINS ,THERAPEUTIC TAB PO ONE (14:35)
[2021-10-13] MEDS ORDERED: FOLIC ACID 1 MG TAB PO SCH (15:00)
[2021-10-13 15:27] LABS: Basophils # (Auto) 0.1 K/mm3 (0.0-0.1); Basophils % (Auto) 0.9 % (0.0-1.8); Eosinophils % (Auto) 0.4 % (0.0-4.3); Hematocrit 27.7 % (30.3-42.9); Hemoglobin 8.9 gm/dl (10.1-14.3); Lymphocytes # (Auto) 2.1 K/mm3 (1.2-5.4); Mean Corpuscular HGB Conc 32 % (30-34); Mean Corpuscular Volume 82 fl (79-97); Monocytes # (Auto) 1.3 K/mm3 (0.0-0.8); Monocytes % (Auto) 10.6 % (0.0-7.3); Platelet Count 243 K/mm3 (140-440); Red Blood Count 3.38 M/mm3 (3.65-5.03)
--- NOTE | 2021-10-13 15:27 | XRay Report ---
CHEST 1 VIEW INDICATION: chest wall pain. COMPARISON: 07/30/2019 FINDINGS: SUPPORT DEVICES: None. HEART: Within normal limits. LUNGS/PLEURA: No acute air space or interstitial disease. ADDITIONAL FINDINGS: None. IMPRESSION: 1. No acute findings. Signer Name: Srikanth Barnett MD Signed: 10/13/2021 3:22 PM Workstation Name: [id number]
[2021-10-13 15:28] LABS: Red Cell Distribution Width 24.9 % (13.2-15.2)
--- NOTE | 2021-10-13 15:30 | Emergency Department Report ---
ED General Adult HPI - General Chief complaint: Chest Pain Stated complaint: Left arm pain. Time Seen by Provider: 10/13/21 14:28 Source: patient, RN notes reviewed, old records reviewed Mode of arrival: Ambulatory Limitations: No Limitations - History of Present Illness Initial comments: During the history and physical examination, I am chaperoned by Ms Smart The patient is a 46-year-old female with a history of alcohol hepatitis, gastric bypass, noncompliance, presenting to the ER today with a primary complaint of left nontraumatic anterior shoulder pain and anterior chest wall pain. The symptoms have been going on for 2 weeks. Denies travel, surgery, immobilization, oral contraceptive use, DVT/PE risk factors. Also states that she is sure that she is not . She was seen in this department 2 days ago for nonspecific symptoms, had a laboratory evaluation which demonstrated evidence of chronic alcoholic liver disease, and a CT scan of her abdomen pelvis which is essentially unchanged from her prior CT scan of her abdomen pelvis in 2019. I also evaluated this patient in May 2021, and I specifically recommended appropriate diet lifestyle modifications, avoidance of alcohol, and also outpatient follow-up with primary care and GI. The patient has not been compliant with these recommendations. She is also noncompliant with her vitamins that she is supposed to be on status post bariatric surgery. She does report alcohol consumption intermittently, and she is not homicidal or suicidal. No tremors or seizures articulated. She does describe occasional back cramping. No hematemesis or bright red blood per rectum -: days(s), week(s) Location: left, upper extremity Severity scale (0 -10): 10 Quality: aching Consistency: intermittent Improves with: none Worsens with: none - Related Data Home Medications Medication Instructions Recorded Confirmed Last Taken Gabapentin 300 mg PO BID 06/04/21 10/11/21 Unknown Previous Rx's Medication Instructions Recorded Last Taken Type Multivitamin with Folic Acid [[facility] 400 mcg PO QDAY #30 tablet 06/04/21 Unknown Rx One Daily Essential Tablet] cephALEXin [Keflex] 500 mg PO Q12HR #14 cap 10/11/21 Unknown Rx Folic Acid [Folvite] 1 mg PO QDAY #30 tablet 10/13/21 Unknown Rx Magnesium Oxide 400 mg PO QDAY #30 tab 10/13/21 Unknown Rx Pantoprazole [Protonix TAB] 20 mg PO QDAY #30 tablet. 10/13/21 Unknown Rx Potassium Chloride [K-Dur] 20 meq PO BID #30 tab 10/13/21 Unknown Rx chlordiazePOXIDE [Librium] 25 mg PO Q6H PRN #25 capsule 10/13/21 Unknown Rx Allergies Allergy/AdvReac Type Severity Reaction Status Date / Time iodine Allergy Itching Verified 10/11/21 13:10 shellfish derived Allergy Itching Verified 10/11/21 13:10 ED Review of Systems ROS: Stated complaint: CP/BACK PAIN/ABD PAIN/SEEN HERE X 2 DAYS Other details as noted in HPI Constitutional: denies: fever Eyes: denies: eye discharge ENT: denies: epistaxis Respiratory: denies: cough Cardiovascular: chest pain Gastrointestinal: abdominal pain (Epigastric abdominal). denies: hematemesis, melena, hematochezia Genitourinary: denies: dysuria Musculoskeletal: back pain Neurological: denies: weakness Psychiatric: denies: homicidal thoughts, suicidal thoughts ED Past Medical Hx - Past Medical History Additional medical history: Chronic back pain, pinched nerves in C-SPINE and LS SPINE - Surgical History Hx Cholecystectomy: Yes Additional Surgical History: Gastric bypass 20 yrs ago. x2 - Social History Smoking Status: Current Every Day Smoker Substance Use Type: Alcohol - Medications Home Medications: Home Medications Medication Instructions Recorded Confirmed Last Taken Type Gabapentin 300 mg PO BID 06/04/21 10/11/21 Unknown History Multivitamin with Folic Acid [[facility] 400 mcg PO QDAY #30 tablet 06/04/21 10/11/21 Unknown Rx One Daily Essential Tablet] cephALEXin [Keflex] 500 mg PO Q12HR #14 cap 10/11/21 Unknown Rx Folic Acid [Folvite] 1 mg PO QDAY #30 tablet 10/13/21 Unknown Rx Magnesium Oxide 400 mg PO QDAY #30 tab 10/13/21 Unknown Rx Pantoprazole [Protonix TAB] 20 mg PO QDAY #30 tablet. 10/13/21 Unknown Rx Potassium Chloride [K-Dur] 20 meq PO BID #30 tab 10/13/21 Unknown Rx chlordiazePOXIDE [Librium] 25 mg PO Q6H PRN #25 capsule 10/13/21 Unknown Rx ED Physical Exam - General Limitations: No Limitations General appearance: alert, in no apparent distress - Head Head exam: Present: atraumatic, normocephalic - Eye Eye exam: Present: normal appearance, EOMI, scleral icterus. Absent: nystagmus - ENT ENT exam: Present: normal exam, normal orophraynx, mucous membranes moist, normal external ear exam - Neck Neck exam: Present: normal inspection, full ROM. Absent: tenderness, meningismus - Respiratory Respiratory exam: Present: normal lung sounds bilaterally. Absent: respiratory distress, wheezes, rales, rhonchi, stridor, decreased breath sounds - Cardiovascular Cardiovascular Exam: Present: regular rate, normal rhythm, normal heart sounds. Absent: bradycardia, tachycardia, irregular rhythm, systolic murmur, diastolic murmur, rubs, gallop - GI/Abdominal GI/Abdominal exam: Present: soft. Absent: distended, tenderness, guarding, rebound, rigid, pulsatile mass - Extremities Exam Extremities exam: Present: normal inspection, full ROM, pedal edema (1-2+ edema in the bilateral lower extremities), other (2+ pulses noted in the bilateral upper and lower extremities. There is no palpable cord. negative Homans sign. Muscular compartments are soft. The pelvis is stable.). Absent: calf tenderness - Back Exam Back exam: Present: normal inspection. Absent: tenderness, CVA tenderness (R), CVA tenderness (L), paraspinal tenderness, vertebral tenderness - Neurological Exam Neurological exam: Present: alert, oriented X3, normal gait, other (No facial droop. Tongue midline. Extraocular movements intact bilaterally. Facial sensation intact to light touch in V1, V2, V3 distribution bilaterally. 5 and a 5 strength in 4 extremities. Sensation intact to light touch in 4 extremities.). Absent: motor sensory deficit - Psychiatric Psychiatric exam: Absent: homicidal ideation, suicidal ideation - Skin Skin exam: Present: warm, dry, intact, normal color. Absent: rash ED Course Vital Signs 10/13/21 10/13/21 10/13/21 08:28 16:01 16:07 Temperature 98.1 F 98.9 F Pulse Rate 92 H 85 Respiratory 18 17 Rate Blood Pressure 110/60 Blood Pressure 111/67 101/65 [Right] O2 Sat by Pulse 100 99 Oximetry O2 Sat by Pulse 99 Oximetry [ Digit-Finger] - Reevaluation(s) Reevaluation #1: 10/13/21 15:35 Differential diagnosis, include but not limited to: Sprain, strain, GERD, gastritis, hiatal hernia, pneumonia, costochondritis, alcoholic hepatitis Assessment and plan: 46-year-old female, who was afebrile, with reassuring vital signs and clinically sober with a GCS of 15, who is not currently tachycardic, tachypneic or hypoxic, who denies DVT/PE risk factors, who is PERC negative, and low risk by Wells criteria for pulmonary embolism, unchanged EKG, nonspecific left arm pain and chest pain for 2 weeks, troponin negative x1, ruled out for myocardial infarction, low risk for major adverse cardiac event as per heart score. CT scan abdomen pelvis from 2 days ago reviewed and appreciated. Abdo men soft and benign, without rebound, guarding or peritoneal signs. We will discuss with GI once remainder laboratory studies results, given concern for acute on chronic alcoholic hepatitis. Patient does not meet criteria for 1013 hold or involuntary confinement at this time. She is clinically sober at this time. She has no evidence of alcohol withdrawal at this time. 10/13/21 16:01 Laboratory studies are reviewed and appreciated. Contacted GI on-call, Dr. Stallworth. Discussed the patient's history, physical, laboratory studies and imaging studies and clinical impression. We both agree that this patient does not meet criteria for admission or hospitalization, Dr. Stallworth advises that no specific medications are indicated for this patient acute on chronic alcoholic liver disease which I agree with. We will discharge with potassium and magnesium supplementation, diet and lifestyle modification instructions, Protonix, and appropriate multivitamins. 10/13/21 16:16 Patient is asking why she is not receiving intravenous pain medication. I am chaperoned by nurse ARIANNE BARAHONA I have advised the patient that I do not plan her condition at this point in time to be a condition that requires intravenous pain medication at this time. Abdomen soft and benign, without rebound, guarding or peritoneal signs, and back is nontender. The patient moves 4 extremities, and is also on his cell phone and appears quite comfortable. I also explained to patient that I would not consider her to be a candidate for NSAIDs or Tylenol at this time, because of her history of alcoholic liver disease. Given her history of alcoholism, and obvious noncompliance with recommended outpatient therapy, as well as high addictive potential of opioids and narcotics, would not dispense narcotics or prescribe IV narcotics here in the emergency room. Patient is advised that she does not have an emergency medical condition present today, but that she will need to follow-up with an outpatient primary care doctor, GI, for outpatient follow-up and maintenance. Advised patient that we are giving Protonix to help out with her potential stomach acid pain. - Pulse Oximetry Interpretation Digit-Finger Initial Pulse Oximetry Readin O2 Sat by Pulse Oximetry: 99 Actions Taken: none ED Medical Decision Making - Lab Data Result diagrams: 10/13/21 14:51 10/13/21 14:51 Vital Signs 10/13/21 08:28 Temperature 98.1 F Pulse Rate 92 H Respiratory 18 Rate Blood Pressure 111/67 [Right] O2 Sat by Pulse 100 Oximetry Lab Results 10/13/21 Range/Units 14:51 WBC 12.7 H (4.5-11.0) K/mm3 RBC 3.38 L (3.65-5.03) M/mm3 Hgb 8.9 L (10.1-14.3) gm/dl Hct 27.7 L (30.3-42.9) % MCV 82 (79-97) fl MCH 26 L (28-32) pg MCHC 32 (30-34) % RDW 24.9 H (13.2-15.2) % Plt Count 243 (140-440) K/mm3 Lymph % (Auto) 17.0 (13.4-35.0) % [place] % (Auto) 10.6 H (0.0-7.3) % Eos % (Auto) 0.4 (0.0-4.3) % Baso % (Auto) 0.9 (0.0-1.8) % Lymph # (Auto) 2.1 (1.2-5.4) K/mm3 [place] # (Auto) 1.3 H (0.0-0.8) K/mm3 Eos # (Auto) 0.0 (0.0-0.4) K/mm3 Baso # (Auto) 0.1 (0.0-0.1) K/mm3 Seg Neutrophils % 71.1 H (40.0-70.0) % Seg Neutrophils # 9.0 H (1.8-7.7) K/mm3 Lab Results 10/13/21 10/13/21 10/13/21 Range/Units 14:51 14:51 14:51 WBC 12.7 H (4.5-11.0) K/mm3 RBC 3.38 L (3.65-5.03) M/mm3 Hgb 8.9 L (10.1-14.3) gm/dl Hct 27.7 L (30.3-42.9) % MCV 82 (79-97) fl MCH 26 L (28-32) pg MCHC 32 (30-34) % RDW 24.9 H (13.2-15.2) % Plt Count 243 (140-440) K/mm3 Lymph % (Auto) 17.0 (13.4-35.0) % [place] % (Auto) 10.6 H (0.0-7.3) % Eos % (Auto) 0.4 (0.0-4.3) % Baso % (Auto) 0.9 (0.0-1.8) % Lymph # (Auto) 2.1 (1.2-5.4) K/mm3 [place] # (Auto) 1.3 H (0.0-0.8) K/mm3 Eos # (Auto) 0.0 (0.0-0.4) K/mm3 Baso # (Auto) 0.1 (0.0-0.1) K/mm3 Seg Neutrophils % 71.1 H (40.0-70.0) % Seg Neutrophils # 9.0 H (1.8-7.7) K/mm3 PT 21.2 H (12.2-14.9) Sec. INR 1.62 H (0.87-1.13) APTT 45.1 H (24.2-36.6) Sec. Sodium 136 L (137-145) mmol/L Potassium 3.4 L (3.6-5.0) mmol/L Chloride 98.2 (98-107) mmol/L Carbon Dioxide 24 (22-30) mmol/L Anion Gap 17 mmol/L BUN 4 L (7-17) mg/dL Creatinine 0.2 L (0.6-1.2) mg/dL Estimated GFR > 60 ml/min BUN/Creatinine Ratio 20 % Glucose 90 (65-100) mg/dL Calcium 8.5 (8.4-10.2) mg/dL Magnesium 1.60 L (1.7-2.3) mg/dL Total Bilirubin 13.60 H (0.1-1.2) mg/dL AST 174 H (5-40) units/L ALT 24 (7-56) units/L Alkaline Phosphatase 189 H (35-129) units/L Troponin T (0.00-0.029) ng/mL Total Protein 8.2 (6.3-8.2) g/dL Albumin 2.9 L (3.9-5) g/dL Albumin/Globulin Ratio 0.5 % 10/13/21 Range/Units 14:51 WBC (4.5-11.0) K/mm3 RBC (3.65-5.03) M/mm3 Hgb (10.1-14.3) gm/dl Hct (30.3-42.9) % MCV (79-97) fl MCH (28-32) pg MCHC (30-34) % RDW (13.2-15.2) % Plt Count (140-440) K/mm3 Lymph % (Auto) (13.4-35.0) % [place] % (Auto) (0.0-7.3) % Eos % (Auto) (0.0-4.3) % Baso % (Auto) (0.0-1.8) % Lymph # (Auto) (1.2-5.4) K/mm3 [place] # (Auto) (0.0-0.8) K/mm3 Eos # (Auto) (0.0-0.4) K/mm3 Baso # (Auto) (0.0-0.1) K/mm3 Seg Neutrophils % (40.0-70.0) % Seg Neutrophils # (1.8-7.7) K/mm3 PT (12.2-14.9) Sec. INR (0.87-1.13) APTT (24.2-36.6) Sec. Sodium (137-145) mmol/L Potassium (3.6-5.0) mmol/L Chloride (98-107) mmol/L Carbon Dioxide (22-30) mmol/L Anion Gap mmol/L BUN (7-17) mg/dL Creatinine (0.6-1.2) mg/dL Estimated GFR ml/min BUN/Creatinine Ratio % Glucose (65-100) mg/dL Calcium (8.4-10.2) mg/dL Magnesium (1.7-2.3) mg/dL Total Bilirubin (0.1-1.2) mg/dL AST (5-40) units/L ALT (7-56) units/L Alkaline Phosphatase (35-129) units/L Troponin T < 0.010 (0.00-0.029) ng/mL Total Protein (6.3-8.2) g/dL Albumin (3.9-5) g/dL Albumin/Globulin Ratio % - EKG Data -: EKG Interpreted by Hi EKG shows normal: sinus rhythm Rate: normal - EKG Data Interpretation: unchanged when compared t 10/13/21 15:35 The EKG today appears to be unchanged when compared to prior EKG from October 05, 2021 Today's EKG shows a sinus rhythm, rate 88 bpm. Left axis deviation, motion artifact, poor R wave progression, QTC 5 1 4 ms. Abnormal EKG. Not a STEMI. - Radiology Data Radiology results: pending, report reviewed, image reviewed CHEST 1 VIEW INDICATION: chest wall pain. COMPARISON: 07/30/2019 FINDINGS: SUPPORT DEVICES: None. HEART: Within normal limits. LUNGS/PLEURA: No acute air space or interstitial disease. ADDITIONAL FINDINGS: None. IMPRESSION: 1. No acute findings. Signer Name: Srikanth Barnett MD Signed: 10/13/2021 2:22 PM Workstation Name: [id number] CT ABDOMEN AND PELVIS WITHOUT CONTRAST HISTORY: abdominal pain COMPARISON: CT abdomen pelvis with contrast 07/30/2019 TECHNIQUE: Axial CT images were obtained through the abdomen and pelvis without IV contrast. Sagittal and coronal reformatted images. All CT scans at this location are performed using CT dose reduction for ALARA by means of automated exposure control. FINDINGS: CT ABDOMEN: Lung Bases: The visualized lung bases are clear. Borderline to mild cardiac enlargement. Liver: The liver appears mildly enlarged and heterogeneous on today's exam. This may represent fatty infiltration. There is small perihepatic ascites. Biliary: Stable cholecystectomy changes. No biliary dilatation is appreciated. Spleen: No significant abnormality. Pancreas: There are multiple small calcifications in the pancreatic head consistent with chronic pancreatitis. This is new since the previous exam. No obvious findings of acute pancreatitis. Adrenals: No significant abnormality. Kidneys: 4 mm calyceal stone is noted in the superior left kidney. No hydronephrosis. The kidneys and collecting system are otherwise unremarkable. Lymphatics: No lymphadenopathy. Vasculature: No significant abnormality. Bowel/Peritoneum: Circumferential thickening of the colon is again seen suggesting a nonspecific colitis. There is no evidence for bowel obstruction or focal mass. Surgical changes are noted in the stomach, correlate with history. The appendix is unremarkable. CT PELVIS: : The uterus, adnexa and bladder are within normal limits. Osseous Structures: No significant abnormality. Additional Findings: None IMPRESSION: Borderline to mild cardiomegaly, stable. Hepatomegaly with probable steatosis. Small perihepatic ascites. Chronic pancreatitis. No definite findings of acute pancreatitis. Nonobstructing left nephrolithiasis. Circumferential thickening of the colon is again seen and suggestive of a nonspecific colitis. This is also noted on the previous exam in 2019. Signer Name: Dakota Francois Jr, MD Signed: 10/11/2021 3:26 PM Workstation Name: [id number] CT ABDOMEN AND PELVIS WITH CONTRAST HISTORY: abd pain, constipation, jaundice, hx etoh abuse. COMPARISON: None. TECHNIQUE: Helical CT images of the abdomen and pelvis were obtained following administration of intravenous contrast. Sagittal and coronal reformatted images were reviewed. All CT scans at this location are performed using CT dose reduction for ALARA by means of automated exposure control. CONTRAST: 100 ml of intravenous contrast administered. FINDINGS: Abdomen/pelvis: The liver is normal size and contour. Mild fatty infiltration throughout the liver is suspected. No obvious cirrhotic changes. The gallbladder has been removed. Pancreas is mildly atrophic with no obvious mass or pseudocyst. The spleen is normal size measuring 10.4 cm. No significant varicosities are identified. There is mild perihepatic, perisplenic and pelvic ascites. No abscess or free air. 4 mm calyceal stone is noted in the mid left kidney. No associated hydronephrosis. The adrenal glands, right kidney, renal collecting systems, uterus, adnexa and bladder are unremarkable. There appears to be mild circumferential thickening of the colon. A colitis could be considered. There is no evidence for obstruction, pneumatosis or free air. Normal appendix. Surgical suture lines are noted in the stomach and left upper quadrant small bowel loops, correlate with history. Lungs/bones: Heart size is borderline. The visualized lung bases are clear. No suspicious bony lesion is detected. IMPRESSION: Hepatic steatosis. Mild circumferential thickening of the colon which could represent a mild colitis. Small to medium ascites of uncertain etiology. This could be secondary to a colitis. Left renal stone, nonobstructing. Cholecystectomy. Signer Name: Dakota Francois Jr, MD Signed: 07/30/2019 11:09 AM Workstation Name: [id number] Critical care attestation.: If time is entered above; I have spent that time in minutes in the direct care of this critically ill patient, excluding procedure time. ED Disposition Clinical Impression: Alcoholic hepatitis, History of alcohol abuse, Left arm pain, Nonspecific chest pain, Noncompliance, History of bariatric surgery, Hypokalemia, Hypomagnesemia, Edema due to hypoalbuminemia Disposition: HOME / SELF CARE / HOMELESS Is pt being admited?: No Does the pt Need Aspirin: No Condition: Good Instructions: Nonspecific Chest Pain, Adult Additional Instructions: We strongly recommend that the patient immediately discontinue alcohol consumption. Do not take Motrin, ibuprofen, Naprosyn, Aleve, and do not take Tylenol or acetaminophen containing compounds. Patient may use ice packs and heat packs as needed for physical pain. Strongly recommend that patient consume foods that are high in magnesium and potassium, such as banana, avocado, or potato. Recommend that patient consume a balanced diet, with adequate calories, carbohydrates, protein, fruits and vegetables. Recommend that patient take multivitamins as directed for malnutrition, and history of bariatric surgery. Recommend that patient follow-up with a primary care doctor for alcoholic h epatitis and malnutrition, or customer accounts advisor for the same, within the next month. Patient may also follow-up with an outpatient bariatric surgeon, such as Dr. Lino, within the next month, for outpatient maintenance and follow-up care for history of gastric bypass. Recommend follow-up with a primary care doctor or manual arts therapist within the next week for complaint of nonspecific chest pain. Please return to the emergency room right away with new pain, worsened pain, migration of pain, projectile vomiting, change in mental status, confusion, inability tolerate liquid feeds, new, worsened or different symptoms not present on the initial emergency room evaluation Prescriptions: Folic Acid [Folvite] 1 mg PO QDAY #30 tablet Potassium Chloride [K-Dur] 20 meq PO BID #30 tab chlordiazePOXIDE [Librium] 25 mg PO Q6H PRN #25 capsule PRN Reason: Alcohol Withdrawal Magnesium Oxide 400 mg PO QDAY #30 tab Pantoprazole [Protonix TAB] 20 mg PO QDAY #30 tablet.dr Referrals: MELISSA LINO MD [Staff Physician] - 3-5 Days JACINDA STALLWORTH MD [Staff Physician] - 3-5 Days [facility] [Provider Group] - 3-5 Days [facility] [Provider Group] - 3-5 Days Forms: Work/School Release Form(ED) Heart Score - HEART Score History: Slightly suspicious EKG: Non-specific Age: 45-65 Risk factors: 1-2 risk factors Troponin: < normal limit HEART Score: 3 - EKG Read Time Time EKG Completed: 15:35 EKG Read Time: 15:35 - Critical Actions Critical Actions: 0-3 pts:0.9-1.7%risk of adverse cardiac event.Candidate for discharge
[2021-10-13 15:39] LABS: INR 1.62 (0.87-1.13)
[2021-10-13 15:40] LABS: Partial Thromboplastin Time 45.1 Sec. (24.2-36.6)
[2021-10-13 15:43] LABS: Alanine Aminotransferase 24 units/L (7-56); Albumin 2.9 g/dL (3.9-5); Blood Urea Nitrogen 4 mg/dL (7-17); Calcium 8.5 mg/dL (8.4-10.2); Hemolysis Index 0
[2021-10-13 15:44] LABS: BUN/Creatinine Ratio 20
[2021-10-13] MEDS ORDERED: POTASSIUM CHLORIDE ER 20 MEQ TAB PO ONE (15:56)
[2021-10-13] MEDS ORDERED: MAGNESIUM OXIDE 400 MG TAB PO STA (15:56)
[2021-10-13] MEDS ORDERED: PANTOPRAZOLE 40 MG TAB PO ONE (15:57)
[2021-10-13 16:04] VITALS: BP 110/60
--- NOTE | 2021-10-14 10:11 | Electrocardiograph Report ---
[facility] Test Date: 2021-10-13 Test Time: 08:38:46 Pat Name: EMIL JONES Department: Room: Gender: F Systems Operator: AF : 1975 Requested By: LUDMILA ORR Order Number: [id number] Reading MD: Oseas Locke Measurements Intervals [place] Rate: 88 P: 39 FL: 140 QRS: -24 QRSD: 102 T: -20 QT: 424 QTc: 514 Interpretive Statements Sinus rhythm Probable left atrial enlargement Probable anterior infarct, age indeterminate Prolonged QT interval Compared to ECG 10/05/2021 10:41:17 No significant changes Electronically Signed On 10-14-2021 10:10:37 EDT by Oseas Locke
== END 2021-10-13 17:51 | disposition home or self-care (01) ==
LOC: ED 07:55
DX: R07.89 Other chest pain (principal); K70.10 Alcoholic hepatitis without ascites; F10.10 Alcohol abuse, uncomplicated; M79.602 Pain in left arm; E87.6 Hypokalemia; E83.42 Hypomagnesemia; R60.9 Edema, unspecified; Z91.19 Patient's noncompliance with other medical treatment and regimen; Z90.49 Acquired absence of other specified parts of digestive tract; F17.200 Nicotine dependence, unspecified, uncomplicated; Z79.899 Other long term (current) drug therapy
CPT/HCPCS: 36415; 71045; 80053; 83735; 84484; 85025; 85610; 85730; 93005; 99284